=== PATIENT | female | born 1955 | race Two or more races ===

== ENCOUNTER 2024-12-25 09:25 | Day surgery (SDC) | payer MEDICARE, SELFPAY ==
[2024-12-25] VITALS (12 sets, daily range): BP systolic 121–167; BP diastolic 73–106; PULSE 87–115; RESP 16–22; TEMP 36.4–36.8; O2SAT 93–98; BMI 42.6
[2024-12-25] MEDS: SODIUM CHLORIDE 0.9% 100 ML IV (12:09)
[2024-12-25] MEDS: ONDANSETRON INJ 2 MG/ML INJ 2 ML 4 MG IV (12:09)
[2024-12-25] MEDS: fentaNYL CIT INJ 50 mCg/ML AMP 2ML (ASD USE ONLY) IV (12:10)
[2024-12-25] MEDS: DiphenhydrAMINE INJ 50 MG/ML VIAL 25 MG IV (12:10)
[2024-12-25] MEDS: MIDAZOLAM INJ 1 MG/ML VIAL 2 ML (ASD USE ONLY) 2 MG IV (12:10)
== END 2024-12-25 13:05 | disposition home or self-care (01) ==
PROVIDERS: PCP Physician Assistant; Referring Provider Specialist; Visit Provider Specialist
PROC: 0DBE8ZX Excision of Large Intestine, Via Natural or Artificial Opening Endoscopic, Diagnostic (ICD-10-PCS; CPT 45380; principal; 2024-12-25 10:30)
PROC: (CPT 43239; 2024-12-25 10:30)
DX: D12.0 Benign neoplasm of cecum (principal); D12.3 Benign neoplasm of transverse colon; K57.31 Diverticulosis of large intestine without perforation or abscess with bleeding; K64.9 Unspecified hemorrhoids; I10 Essential (primary) hypertension; K31.89 Other diseases of stomach and duodenum; K29.51 Unspecified chronic gastritis with bleeding; K63.5 Polyp of colon
CPT/HCPCS: 45385; 45380; A4649; J1200; J2250; J2405; J3010; J7050